=== PATIENT | female | born 1995 | race Two or more races ===

== ENCOUNTER 2017-08-31 19:12 | Emergency (ER) | payer OTHER ==
[~2017-08-31] VITALS: Ht 165.1 cm; Wt 112.6 kg
[~2017-08-31 19:12] MED LIST: BACTROBAN OINTM22 GM TP; FLEXERIL10 MG PO; MACROBID100 MG PO; NAPROSYN500 MG PO
[2017-08-31 20:13] LABS: HEMATOCRIT 42.5 % (36.0-46.0); HEMOGLOBIN 14.1 G/DL (11.9-15.5); MCHC 33.2 G/DL (30.0-36.0); MCV 87.3 FL (83-99); PLATELET COUNT 294 K/uL (156-360); RBC DIS.WIDTH-CV 12.4 % (11.8-14.6); RBC DIS.WIDTH-SD 40.1 % (39-53); RED BLOOD COUNT 4.87 M/uL (3.80-5.20); WHITE BLOOD COUNT 11.1 K/uL (4.1-10.2)
[2017-08-31 20:31] LABS: D-DIMER ELISA < 150.00 ng/mLDDU (<230)
[2017-08-31 20:45] LABS: QUANTITATIVE HCG < 4.0 MIU/ML
[2017-08-31 21:02] LABS: CHLORIDE 104 MEQ/L (99-109); POTASSIUM 3.6 MEQ/L (3.7-5.4); SODIUM 135 MEQ/L (136-147)
[2017-08-31 21:06] LABS: APPEARANCE CLEAR ((CLEAR)); BILIRUBIN NEGATIVE; BLOOD NEGATIVE; COLOR YELLOW ((YELLOW)); GLUCOSE (STRIP) NEGATIVE; KETONES NEGATIVE; LEUKOCYTES NEGATIVE; NITRITE NEGATIVE; PROTEIN (STRIP) NEGATIVE; UCUL ADDED? NO; UROBILINOGEN 0.2 MG/DL (0.2-1.0)
[2017-08-31 21:08] LABS: CREATININE 0.8 MG/DL (0.6-1.3); GFR ESTIMATE (CALCULATED) > 59 mL/min/; GLUCOSE 89 mg/dL (70-99); UREA NITROGEN (BUN) 8 mg/dL (9-23)
[2017-08-31 22:43] VITALS: BP 108/72
== END 2017-08-31 22:43 | disposition home or self-care (01) ==
LOC: EME 19:12
PROVIDERS: Nurse Practitioner Family
DX: R55 Syncope and collapse (principal); R10.32 Left lower quadrant pain; F17.200 Nicotine dependence, unspecified, uncomplicated; Z88.0 Allergy status to penicillin
CPT/HCPCS: 70450; 80048; 81003; 84702; 85027; 85379; 93005; 99281; 99285; J7030